=== PATIENT | female | born 1950 | race Caucasian/White ===

== ENCOUNTER → 2017-07-11 | Outpatient (CLI) | payer OTHER, MEDICARE ==
[~2017-07-11] MED LIST: ACCUNEB SO1.25 MG/1 INH; ACCUNEB0.63 MG/3 INH; ADIPEX-P37.5 MG PO; BUPROPION HCL200 MG PO; CELEXA20 MG PO; GLUCOPHAGE500 MG PO; HYDROCODON-ACE1 EAC7 PO; LEVOTHYROXIN0.075 MG PO; MULTIVITAMINS PO; PREMARIN0.3 MG PO; TUMS PO
== END ==
LOC: BC 08:38 → NUC 08:38
DX: Z12.31 Encounter for screening mammogram for malignant neoplasm of breast (principal); M85.89 Other specified disorders of bone density and structure, multiple sites; Z78.0 Asymptomatic menopausal state

== ENCOUNTER → 2018-07-14 | Outpatient (CLI) | payer OTHER, MEDICARE | LOC: NUC 01:15 | DX: Z12.31 Encounter for screening mammogram for malignant neoplasm of breast (principal); M81.0 Age-related osteoporosis without current pathological fracture; M85.88 Other specified disorders of bone density and structure, other site ==

== ENCOUNTER → 2018-12-18 | Outpatient (CLI) | payer OTHER, MEDICARE | LOC: RAD 08:05 | DX: R91.8 Other nonspecific abnormal finding of lung field (principal) ==

== ENCOUNTER → 2018-12-22 | Outpatient (CLI) | payer OTHER, MEDICARE ==
[2018-12-22 10:51] LABS: CREATININE 0.7 mg/dL (0.6-1.0)
== END ==
LOC: CAT 08:39
PROVIDERS: Internal Medicine
DX: R91.8 Other nonspecific abnormal finding of lung field (principal); J92.9 Pleural plaque without asbestos; E04.1 Nontoxic single thyroid nodule; J98.4 Other disorders of lung

== ENCOUNTER 2019-01-20 09:50 | Inpatient (IN) | payer OTHER, MEDICARE ==
[2019-01-12 10:54] LABS: ABSOLUTE NEUTROPHILS 2.3 thou/uL (1.4-8.2); BASOPHILS 1.3 % (0.0-2.0); EOSINOPHILS 8.1 % (0.0-3.0); HEMATOCRIT 40.6 % (37.0-47.0); HEMOGLOBIN 13.4 gm/dL (12.0-15.0); LYMPHOCYTES 37.4 % (24.0-44.0); MCH 31.3 pg (26.0-34.0); MCHC 33.1 g/dL (28.0-37.0); MCV 94.5 fL (80.0-100.0); MONOCYTES 10.2 % (1.0-8.0); PLATELET COUNT 218 thou/uL (150-400); RDW 12.9 % (10.5-14.5); WBC 5.4 thou/uL (4.0-11.0)
[2019-01-12 11:03] LABS: URINE BILIRUBIN NEGATIVE (Negative); URINE BLOOD NEGATIVE (Negative); URINE CLARITY CLEAR; URINE COLOR YELLOW; URINE GLUCOSE-RANDOM* NEGATIVE (Negative); URINE KETONES NEGATIVE (Negative); URINE LEUKOCYTES NEGATIVE (Negative); URINE NITRITE NEGATIVE (Negative); URINE PROTEIN (DIPSTICK) NEGATIVE (Negative); URINE SPECIFIC GRAVITY 1.025 (1.005-1.035); URINE UROBILINOGEN 0.2 E.U./dl (0.2-1.0)
[2019-01-12 11:05] LABS: APTT 28.2 Seconds (24.5-32.8); PROTIME 10.7 Seconds (9.3-11.4)
[2019-01-12 11:06] LABS: ALBUMIN 4.1 g/dL (3.4-5.0); CALCIUM 9.5 mg/dL (8.5-10.1); CREATININE 0.8 mg/dL (0.6-1.0); TOTAL BILIRUBIN 0.5 mg/dL (<0.1-1.0); TOTAL PROTEIN 6.6 g/dL (6.4-8.2)
--- NOTE | 2019-01-13 08:42 | EKG ---
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: agnes : 1950 Requested By: Gwyn Franco Order Number: [id number] : Acosta Whittaker Measurements Intervals Fromberg Rate: 52 P: 1 ND: 265 QRS: -7 QRSD: 103 T: 19 QT: 445 QTc: 414 Interpretive Statements Sinus rhythm Prolonged ND interval Borderline T abnormalities, inferior leads Baseline wander in lead(s) I,III,aVR,aVL,aVF,V6 Compared to ECG 01/18/2016 06:59:41 T-wave abnormality now present Electronically Signed On 01-13-2019 8:42:03 GAGE MAKER by Acosta Whittaker [email or web address] <ELECTRONICALLY SIGNED> By: Acosta Whittaker MD 01/13/19 0842 1047 1047 Acosta Whittaker MD /EPI
[2019-01-15 14:27] LABS: URINE BILIRUBIN NEGATIVE (Negative); URINE BLOOD NEGATIVE (Negative); URINE CLARITY CLEAR; URINE COLOR YELLOW; URINE GLUCOSE-RANDOM* NEGATIVE (Negative); URINE KETONES NEGATIVE (Negative); URINE LEUKOCYTES-REFLEX NEGATIVE (Negative); URINE NITRITE-REFLEX NEGATIVE (Negative); URINE PROTEIN (DIPSTICK) NEGATIVE (Negative); URINE UROBILINOGEN 0.2 E.U./dl (0.2-1.0)
--- NOTE | 2019-01-19 23:17 | NUR ---
DR. HAHN REQUESTS THAT THIS ASSEMBLER SURGICAL GARMENT CANCEL PT'S CASE FOR THE MORNING. SPOKE WITH Ramon JEY AND INFORMED HER THAT SHAHRAM WOULD REACH OUT TO RESCHEDULE.
[~2019-01-20] VITALS: Ht 167.6 cm; Wt 92.5 kg
[~2019-01-20 09:50] MED LIST changes: +ALENDRONATE SOD70 MG PO; +IPRAT-ALBUT 0.5-3 ML INH; -LEVOTHYROXIN0.075 MG PO; +LOVASTATIN 20 M20 MG PO; +OCUVITE ADULT1 EAC2 PO; +PEPCID20 MG PO; +SYNTHROID75 MCG PO; +VITAMIN D325 MC5 PO
[2019-01-29] VITALS (15 sets, daily range): BP systolic 118–138; BP diastolic 62–88
--- NOTE | 2019-01-29 13:06 | NUR ---
1235-RECEIVED PT FROM PACU VIA BED.PT THRASHING & WRITHING AROUND IN BED, THEN SUDDENLY STOPS.PT ABLE TO STATE JEREMI WHEN ?'D RE:HER NAME BUT ANSWERS NO OTHER ?'S.MOANS & GROANS.SONOROUS RESP'S WHEN LYING QUIETLY.CT W MINUTE AIR LEAK & MOD AMT OF TIDALING.NO SUB-Q AIR APPRECIATED.FREDDIE VERY POSITIONAL AND PT CURLED UP W HAND BENEATH HER HEAD.VSS.--VW
--- NOTE | 2019-01-29 13:43 | NUR ---
SPOKE W PHARMACY TO VERIFY MED ORDERS. AT BEDSIDE-REYES,I HURT!! THRASHING,RESTLESS,MOANS,FROWNING & GRIMACING.WILL START STONE RUBBER SOON AVAILABLE.UPDATED ON POC.--VW
--- NOTE | 2019-01-29 20:43 | NUR ---
1899-PAIN FINALLY UNDER BETTER CONTROL W USE OF MANAGER COUNCIL FENTANYL.PT IS PUSHING BUTTON HERSELF.BP BETTER ONCE CARDENE STARTED.PT SLEEPING MOSTLY WHEN LEFT ALONE.CARE TURNED OVER TO ONCOMING RN.--VW
[2019-01-30] VITALS (70 sets, daily range): BP systolic 104–156; BP diastolic 50–95
[2019-01-30 05:12] LABS: HEMATOCRIT 36.8 % (37.0-47.0); HEMOGLOBIN 12.4 gm/dL (12.0-15.0); MCH 31.7 pg (26.0-34.0); MCHC 33.7 g/dL (28.0-37.0); MCV 94.2 fL (80.0-100.0); RBC 3.91 mil/uL (4.20-5.00); RDW 12.6 % (10.5-14.5); WBC 10.4 thou/uL (4.0-11.0)
[2019-01-30 05:20] LABS: CALCIUM 8.1 mg/dL (8.5-10.1); CREATININE 0.6 mg/dL (0.6-1.0); POTASSIUM 3.6 mmol/L (3.5-5.1)
--- NOTE | 2019-01-30 06:30 | NUR ---
PT A&O X4 AND DROWSY THROUGHOUT THE NIGHT. NO PERIODS OF CONFUSION. PT C/O PAIN AT INCISION AND CHEST TUBE SITES. PT NEEDED FREQUENT ENCOURAGEMENT AND EDUCATION TO USE INTERNATIONAL RELATIONS PROFESSOR PUMP. INTERNATIONAL RELATIONS PROFESSOR DID HELP RELIEVE PT'S PAIN WHEN USED. NO SOA, PT ON 2 L O2 THROUGHOUT THE NIGHT. PT INITIALLY ON CARDENE, BUT GTT HAS BEEN OFF ALL MORNING. PT'S A LINE BEGAN TO READ POORLY AROUND 0130 THIS MORNING. NO OTHER CHANGES OVER NIGHT. WILL CONTINUE TO MONITOR.
--- NOTE | 2019-01-30 14:33 | NUR ---
PT ADMITTED RELATED TO RT UPPER LOBECTOMY/BRONCHOSCOPY/THORACOTOMY. CM REVIEWED CHART AND SPOKE WITH CARE TEAM. CM MET WITH PT AND SPOUSE AT BEDSIDE THIS DAY. PT IS A&O X4. CM ROLE INTRODUCED. PT INDICATED SHE AND SPOUSE RESIDE IN A HOUSE WITH 2 STEPS TO ENTER AND 13 STEPS TO SECOND STORY BEDROOM. 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 PT INDICATED SHE HAS NO DME OR HH HX. PT INIDCATED SHE PLANS TO RETURN HOME ONCE MEDICALLY STABLE. CM TO FOLLOW INDICATED WITH DC PLANNING.
--- NOTE | 2019-01-30 20:39 | NUR ---
PT MINERALOGY PROFESSOR BASAL DOSE WAS D/C. PT PAIN UNDER CONTROL. CHEST TUBE WITHIN CLINICAL PARAMETERS. PT EDUCATED TO USE IS AND PRESS MINERALOGY PROFESSOR BUTTON WHEN NEEDED. CHEST TUBE DRAINAGE SEROSANG. PT UP TO CHAIR X 2 TODAY. APPETITIE INCREASING.
[2019-01-31] VITALS (15 sets, daily range): BP systolic 113–161; BP diastolic 65–84
--- NOTE | 2019-01-31 06:00 | NUR ---
NO SIGNIFICANT CHANGES OVERNIGHT. PT SLEPT WELL THROUGHOUT THE NIGHT, BUT WOULD WAKE UP IN PAIN. PT REMAINS ON FENTANYL PRODUCTION HELPER WITH NO BASAL RATE; PT WOULD USE PRODUCTION HELPER BOLUS PRN. WILL CONTINUE TO MONITOR.
--- NOTE | 2019-01-31 14:16 | NUR ---
Patient worked with her I.S. today and obtained 500ml. She sat in chair after working with PT. Report was called to CCU RN for continuation of care. Afterwards, patient was transfered to CCU room 205 with all belongings, along side her son.
--- NOTE | 2019-01-31 21:08 | NUR ---
ASSUMED CARE OF PATIENT AT 1320 FROM ICU. ASSESSMENT COMPLETED. PATIENT ON CHARTERED FINANCIAL ANALYST PUMP. PATIENT IN BED AND REPOSITIONED FREQUENTLY PER HER REQUEST. PATIENT'S SON AND AT BEDSIDE. PATIENT HAS MINIMAL APPETITE. PATIENT ATE 25% DINNER PLUS A PUDDING AND SWITCHED TO PO PAIN MEDS. CHARTERED FINANCIAL ANALYST DISCONTINUED. PATIENT IS ASSISTING IN HER TRANSFERS APPROPRIATELY. PATIENT TO CONTINUE WITH POC.
[2019-02-01] VITALS (7 sets, daily range): BP systolic 115–130; BP diastolic 63–80
--- NOTE | 2019-02-01 07:02 | NUR ---
A/OX 4.UP WITH ASSIST TO THE BEDSIDE COMMODE.VOIDED.CIRCUIT WALKER WAS DISCONTINUED AND STARTED ON PAIN PILL.PAIN WELL CONTROLLED.BIFURCATED CHEST TUBE INTACT WITH SEROUS DRAINAGE TO NEGATIVE 20 SUCTION.MONITOR SHOWS SR WITH 1ST DEGREE AV BLOCK.POC CONTINUED.
--- NOTE | 2019-02-01 17:20 | O ---
[facility] [place] [address] [place] [address] OPERATIVE REPORT Name: JONATHON KHANNA Room #: 205-P ADM IN M.R.#: [id number] Admission: 01/29/19 Attend Phys: Gwyn Franco MD Discharge: Date of : 46 Report #: [id number] THIS REPORT FOR: //name// CC: Gwyn Segura DATE OF SERVICE: 01/31/2019 PREOPERATIVE DIAGNOSIS: Pulmonary nodule, right upper lobe of lung. POSTOPERATIVE DIAGNOSES: Pulmonary nodule, right upper lobe of lung with frozen section revealing a carcinoma. OPERATION: Bronchoscopy and right thoracotomy with upper lobectomy. SURGEON: Gwyn Franco MD. QUALITY CONTROL TECH RAW MATERIALS: YESSY Neri. ANESTHESIA: General. INDICATIONS: The patient is a 69-year-old seen for Dr. Greenberg. The patient has a known calcified pulmonary nodule that lights up on PET scan. No other areas are active on the PET scan. The patient has a remote history of smoking. FINDINGS AND TECHNIQUE: After general anesthesia was established, flexible diagnostic bronchoscopy was performed. No endobronchial lesions were noted. A double lumen endotracheal tube was placed and the patient was positioned with the right side up. Exposure was obtained through a right posterolateral thoracotomy using a rib sparing and nerve sparing approach and entering through the fifth interspace. The nearly complete fissures were exploited and the dissection was started. Prior to this, however, a core needle biopsy was done of the upper lobe lesion and this revealed carcinoma with the specific type not defined. With this information, we began the lobectomy. The arterial branches to the upper lobe were ligated and divided. Venous branches to the upper lobe were stapled and divided. The bronchus was circum-dissected and stapled. The incomplete horizontal fissure was completed with the stapler and the lobe was submitted for a permanent pathologic consideration. Dissection at the hilum allowed us to harvest another node and we also explored the mediastinum above the azygos vein, but this area was full of fat. I even returned to this area later and found no significant adenopathy, but rather just [facility] [address] [place] [address] OPERATIVE REPORT Name: JONATHON KHANNA Room #: 205-P ADM IN M.R.#: [id number] Admission: 01/29/19 Attend Phys: Gwyn Franco MD Discharge: Date of : 46 Report #: [id number] exuberant fat. The bronchial stump was tested and found to be satisfactory. Pulmonary ligament was divided. Middle lobe was tacked to lower lobe to prevent torsion. Two tubes were brought through separate stab wounds and then the chest was closed to maintain the rib sparing and nerve sparing approach. The patient was taken to the recovery area in good condition having tolerated the procedure well. All counts were reported as correct. <ELECTRONICALLY SIGNED> By: Gwyn Franco MD 02/01/19 1720 1132 1202 Gwyn Franco MD /nt
--- NOTE | 2019-02-01 17:52 | NUR ---
ASSUMED CARE OF PT AT SHIFT CHANGE. ASSESSMENTS CHARTED. MEDS GIVEN PER APR. VSS. PT A&OX4. C/O PAIN TREATED WITH PO MEDS WITH PARTIAL RELIEF. CHEST TUBE CHANGED TO WATER SEAL. PT WALKED IN RIOS WITH NO C/O SOA. WILL CONTINUE TO MONITOR AND FOLLOW POC.
[2019-02-02 05:00] VITALS: BP 122/70
--- NOTE | 2019-02-02 06:16 | NUR ---
PT RESTED WELL THROUGH THE NIGHT.ASSESSMENT COMPLETED DOCUMENTED.PAIN CONTROLLED WITH PAIN MEDS PER ORDERS.CHEST TUBE TO WATER SEAL.RA W/O RESP DISTRESS.AMBULATES TO BR,GAIT STEADY.VOIDING ADEQUATELY.PT HOPING TO HAVE CHEST TUBE OUT ADN HOPEFULLY DSICAHRGE TOMORROW.WILL CONT TO MONITOR
[2019-02-02 10:07] VITALS: BP 108/61
--- NOTE | 2019-02-02 15:05 | NUR ---
patient transferred to CCU. therapy evals noted and reviewed. Possible dc home with HH or dc home outpatient f/u. casemgt following for dc planning.
[2019-02-02 15:44] VITALS: BP 110/68
--- NOTE | 2019-02-02 17:35 | NUR ---
ASSUMED CARE OF PT AT SHIFT CHANGE. ASSESSMENTS CHARTED. MEDS GIVEN PER APR. VSS. PT A&OX4. CHEST TUBE REMOVED IN AM. C/O OF PAIN TREATED WITH PO MEDS WITH PARTIAL RELIEF. PATIENT WALKED WITH PT WITH NO C/O SOA. PLAN IS TO GO HOME TOMORROW. WILL CONTINUE TO MONITOR AND FOLLOW POC.
[2019-02-02 20:38] VITALS: BP 115/62
--- NOTE | 2019-02-03 03:24 | NUR ---
ASSESSMENT DOCUMENTED.PT BEEN RESTING IN NO ACUTE DISTRESS.A/OX4.VSS.SURGICAL INCISION CDI.PAIN CONTROLLLED WITH PAIN MEDS.UP AD SOLANGE TO BR.POC IS TO DISCHARGE TODAY.I WILL CONT TO MONITOR PER POC.
[2019-02-03 05:04] VITALS: BP 119/73
[2019-02-03 07:56] VITALS: BP 112/56
[2019-02-03 10:11] VITALS: BP 112/56
--- NOTE | 2019-02-03 11:15 | NUR ---
ASSUMED CARE OF PT AT SHIFT CHANGE. ASSESSMENT CHARTED. MEDS GIVEN PER APR. VSS. PT A&OX4. C/O OF DISCOMFORT. DECLINED PAIN MEDS. PT ON RA WITH NO C/O SOA WITH ANY ACTIVITY. DISCHARGE ORDERS AND INSTRUCTIONS COMPLETE. TELE AND IV DC'D. THIS NURSE TOOK PT VIA WHEELCHAIR WITH TO FRONT DOOR WHERE CAR WAS WAITING.
--- NOTE | 2019-02-03 17:06 | PATH ---
[facility] [address] [place] [address] PATHOLOGY RPT PROCEDURE Name: JONATHON KHANNA Room #: 205-P DIS IN M.R.#: [id number] Admission: 01/29/19 Date of : 46 Discharge: 02/03/19 Report #: [id number] Path Case #: [id number] [facility] Accession Number: [id number] . 01 Material submitted: . PART A: lung - NEEDLE BIOPSY RIGHT UPPER LOBE. Modifiers: right, upper PART B: lung - RIGHT UPPER LOBE. Modifiers: right, upper PART C: lymph node - HILAR LYMPH NODE . 01 Clinical history: . Pulmonary nodule, lung cancer by frozen section. . 02 Frozen section diagnosis: . FROZEN SECTION DIAGNOSIS (Ama Breaux MD) . FSA1, Right upper lobe lung mass, needle core biopsy: - POSITIVE FOR MALIGNANCY. . These findings are discussed with Dr. Gwyn Franco in OR-7 and a written report is placed in the patient's chart. . Frozen section performed at [facility], [address] , [place] [address]. . GROSS DESCRIPTION Specimen A is received fresh from the OR labeled with the patient's name and "right upper lobe biopsy", consists of three thin white-desai needle core biopsies measuring an aggregate of approximately 2 cm with a diameter of less than 0.1 cm. The specimen is submitted for frozen section in entirety as FSA1, the frozen section remnant is submitted for permanent sections as A1. (IUV:mamadou; 01/29/2019) IZV/QMS . 02 Diagnosis: A. 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 . B. 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 - Margins of resection free of malignancies; see synoptic report assembled). - Six hilar lymph nodes with macrophages as well as reactive changes; negative for malignancy (0/6). . C. Lymph nodes (2), hilar lymph node, dissection: [facility] [address] [place] [address] PATHOLOGY RPT PROCEDURE Name: JONATHON KHANNA Room #: 205-P [facility].#: [id number] Admission: 01/29/19 Date of : 46 Discharge: 02/03/19 Report #: [id number] Path Case #: [id number] - Two hilar lymph nodes with macrophages and reactive changes; negative for malignancy (0/2). (IUV:mamadou; 02/03/2019) . . Surgical Pathology Cancer Case Summary . Protocol posting date: July 2016 . LUNG: Procedure- Lobectomy Specimen Laterality- Right Tumor Site- Upper lobe of lung Tumor Size- 2.8 cm in greatest dimensions Tumor Focality- Single tumor Histologic Type- Atypical carcinoid tumor Histologic Grade- G2: Moderately differentiated Spread Through Air Spaces- Not identified Visceral Pleura Invasion- Not identified Lymphovascular Invasion- Not identified Direct Invasion of Adjacent Structures- No adjacent structures present Margins- All margins are uninvolved by tumor Margins examined: Bronchial, Vascular and Visceral Pleura Distance of invasive carcinoma from closest margin (centimeters): 0.5 cm Specify closest margin: Visceral pleura Distance of invasive carcinoma from closest margin (centimeters): 1.3 cm Specify closest margin: Bronchus Treatment Effect- No known presurgical therapy Regional Lymph Nodes- Number of Lymph Nodes Examined: 8 Specify priscila station(s) examined: Hilar nodes . . Pathologic Stage Classification (pTNM, AJCC 8th Edition) . TNM Descriptors- None Primary Tumor (pT) pT1c: Tumor >2 cm but = 3 cm in greatest dimension Regional Lymph Nodes (pN) pN0: No regional lymph node metastasis . Distant Metastasis (pM): pMx (unknown) S 02/03/2019 1408 Local . 02 Comment: Examination shows a neoplasm with trabecular, as well as acinar pattern in addition to solid areas. The nuclei show a salt and pepper chromatin. Multiple properly controlled immunohistochemical stains are performed on block B4 to further characterize this neoplasm. The tumor shows strong [facility] [address] [place] [address] PATHOLOGY RPT PROCEDURE Name: JONATHON KHANNA Room #: 205-P DIS IN M.R.#: [id number] Admission: 01/29/19 Date of : 46 Discharge: 02/03/19 Report #: [id number] Path Case #: [id number] granular reactivity with synaptophysin, and chromogranin. Strong membranous reactivity is identified with CD56. TTF-1 shows strong nuclear reactivity. AE1/AE3,NapsinA, p63, and p53 are nonreactive. Based on these immunohistochemical stains the tumor is consistent with a neuroendocrine tumor. A Ki-67 proliferation marker is performed to assess the proliferative activity within the tumor and it appears to be at 5%. 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 . Dr. Tereza Tiwari has seen customer account representative slides of this case including the proliferative marker and concurs with my interpretation. Findings of this case are communicated to Dr. Gwyn Franco at 11:24 a.m. on 02/02/2019, and the final findings were updated in the afternoon of 02/03/2019. . (IUV:mamadou; 02/03/2019) . 02 Electronically signed: . Ama Breaux MD, Pathologist NPI- [id number] . 01 Gross description: . A. Please see Gross Description located under Frozen Section heading. . B. Received in formalin labeled "Jonathon Khanna, right upper lobe" is a lung lobectomy specimen weighing 149 g and measuring 13.8 x 8.5 x 4.5 cm. The pleura is red-pink and wrinkled with a desai-barreto plaque-like area on one aspect measuring 0.8 x 0.8 x 0.3 cm. The hilum displays numerous staple lines. Multiple possible lymph nodes are identified at the hilum, ranging from 0.5-1.4 cm in greatest dimension. The specimen is sectioned to reveal a well-circumscribed desai-white bulging mass measuring 2.8 x 2.6 x 2.5 cm. The mass is located adjacent to the bronchus, 1.3 cm from the bronchial margin, and 2.0 cm from the closest vascular margin. The mass may invade into the bronchial tissue. The mass is located 0.5 cm from the pleural surface. The previously described plaque is located 5.0 cm from the mass. The uninvolved lung parenchyma is red-pink and dense. New Car Salesperson sections of the specimen are submitted as follows: B1-B2 bronchial and vascular margins B3 possible lymph nodes from hilum B4 mass to bronchus B5 mass to pleura B6 mass to lung parenchyma B7 uninvolved lung parenchyma B8 plaque on pleura . C. Received in formalin labeled "Farhan Khannaha, hilar lymph node" is a barreto-black lymph node measuring 1.0 x 0.8 x 0.3 cm. The specimen is submitted without sectioning in cassette C1. [place] [place] [facility] 02/03/2019 1401 Local . [address] [address] PATHOLOGY RPT PROCEDURE Name: JONATHON KHANNA Room #: 205-P DIS IN M.R.#: [id number] Admission: 01/29/19 Date of : 46 Discharge: 02/03/19 Report #: [id number] Path Case #: [id number] Pathologist provided ICD-10: C7A.090 . 02 CPT . 047134, [id number], [id number], [id number], [id number], [id number] Specimen Comment: A courtesy copy of this report has been sent to [phone], [phone] Specimen Comment: [id number] Specimen Comment: Report sent to and Performed at: [address], [place], [place] [id number] MD Cornelio Agarwal MD Phone: [phone] Performed at: [address] [id number] MD Ama Breaux MD Phone: [phone]
== END 2019-02-03 11:15 | disposition home or self-care (01) | DRG 165 ==
LOC: PRE 09:50 → ICU 01-29 05:48 → TBA 01-29 05:48 → PRE 01-29 10:19 → ICU 01-29 12:29 → 2N 01-31 13:10
PROVIDERS: Physician Assistant; ADMIT Surgery Vascular Surgery
PROC: 07B74ZX Excision of Thorax Lymphatic, Percutaneous Endoscopic Approach, Diagnostic (ICD-10-PCS; 2019-01-29)
PROC: 0BBC8ZX Excision of Right Upper Lung Lobe, Via Natural or Artificial Opening Endoscopic, Diagnostic (ICD-10-PCS; 2019-01-29)
PROC: 0BJ08ZZ Inspection of Tracheobronchial Tree, Via Natural or Artificial Opening Endoscopic (ICD-10-PCS; principal; 2019-01-31)
PROC: 0BBC0ZZ Excision of Right Upper Lung Lobe, Open Approach (ICD-10-PCS; principal; 2019-01-31)
DX: C34.11 Malignant neoplasm of upper lobe, right bronchus or lung (principal); Z79.899 Other long term (current) drug therapy
CPT/HCPCS: 10078; 10081; 47405; 50010; 50101; 50386; 50417; 50455; 50497; 50607; 50649; 50739; 50740; 51301; 52191; 52301; 52303; 54118; 56524; 56525; 56526; 56527; 56528; 62110; 62900; 65020; 65040; 65090; 65135; 70005

== ENCOUNTER → 2019-08-03 | Outpatient (CLI) | payer OTHER, MEDICARE | LOC: RAD 10:06 | PROVIDERS: ATTEND Neuromusculoskeletal Medicine & OMM | DX: Z12.31 Encounter for screening mammogram for malignant neoplasm of breast (principal) ==

== ENCOUNTER → 2019-10-05 | Outpatient (CLI) | payer OTHER, MEDICARE | LOC: RAD 12:18 | PROVIDERS: ATTEND Internal Medicine | DX: R06.02 Shortness of breath (principal) ==

== ENCOUNTER → 2020-04-04 | Outpatient (CLI) | payer OTHER | LOC: CAT 09:20 | PROVIDERS: ATTEND Internal Medicine | DX: R91.8 Other nonspecific abnormal finding of lung field (principal); R07.9 Chest pain, unspecified; M25.78 Osteophyte, vertebrae; Z85.9 Personal history of malignant neoplasm, unspecified ==

== ENCOUNTER → 2020-04-22 | Outpatient (CLI) | payer OTHER | LOC: NUC 04-21 12:17 | PROVIDERS: ATTEND Neuromusculoskeletal Medicine & OMM | DX: M81.0 Age-related osteoporosis without current pathological fracture (principal); M85.88 Other specified disorders of bone density and structure, other site ==

== ENCOUNTER → 2020-05-18 | Outpatient (CLI) | payer OTHER | LOC: CAT 13:47 | PROVIDERS: ATTEND Neuromusculoskeletal Medicine & OMM | DX: Z13.6 Encounter for screening for cardiovascular disorders (principal); I25.10 Atherosclerotic heart disease of native coronary artery without angina pectoris; E78.00 Pure hypercholesterolemia, unspecified ==

== ENCOUNTER → 2020-08-03 | Outpatient (CLI) | payer OTHER | LOC: RAD 12:30 | PROVIDERS: ATTEND Neuromusculoskeletal Medicine & OMM | DX: Z12.31 Encounter for screening mammogram for malignant neoplasm of breast (principal) ==

== ENCOUNTER → 2020-11-28 | Outpatient (CLI) | payer OTHER | LOC: CAT 10:32 | PROVIDERS: ATTEND Internal Medicine | DX: R91.8 Other nonspecific abnormal finding of lung field (principal); Z85.9 Personal history of malignant neoplasm, unspecified ==